=== PATIENT | female | born 1985 | race Caucasian/White ===

== ENCOUNTER 2017-10-22 17:13 | Emergency (ER) | payer BC ==
[~2017-10-22] VITALS: Ht 172.7 cm; Wt 145.0 kg
[2017-10-22 17:16] VITALS: Ht 172.7 cm; Wt 145.0 kg
[2017-10-22] MEDS ORDERED: ASPIRIN 81 MG CHEW PO STA (17:34)
[2017-10-22 18:14] VITALS: O2SAT 97
[2017-10-22 18:17] LABS: BASO % 0.2 %; BASO ABS # 0.02 K/uL (0-0.2); EOS % 2.6 %; EOS ABS # 0.24 K/uL (0-0.5); HEMATOCRIT 42.9 % (37-47); HEMOGLOBIN 14.7 g/dL (12.0-16.0); IG# 0.07 K/uL (0.00-0.02); LYMPH % 18.8 %; LYMPH ABS # 1.73 K/uL (1.2-3.4); MEAN CELL VOLUME 84.1 fL (80-100); MEAN CORPUSCULAR HEMOGLOBIN 28.8 pg (25-34); MEAN CORPUSCULAR HGB CONC 34.3 g/dl (32-36); MEAN PLATELET VOLUME 9.7 fL (7.4-10.4); MONO % 6.3 %; MONO ABS # 0.58 K/uL (0.11-0.59); NEUT % 71.3 %; NEUT ABS # 6.57 K/uL (1.4-6.5); PLATELET COUNT 191 K/uL (130-400); RED CELL DISTRIBUTION WIDTH CV 13.3 % (11.5-14.5); RED CELL DISTRIBUTION WIDTH SD 40.8 fL (36.4-46.3); WHITE BLOOD COUNT 9.21 K/uL (4.8-10.8)
--- NOTE | 2017-10-22 18:21 | DIAGNOSTIC IMAGING REPORT ---
CHEST 2 VIEWS ROUTINE CLINICAL HISTORY: 32 years-old Female presenting with cp. TECHNIQUE: PA and lateral views of the chest were obtained. COMPARISON: None. FINDINGS: Cardiomediastinal silhouette normal. Lungs and pleural spaces clear. Osseous structures normal. Upper abdomen normal. IMPRESSION: 1. No acute cardiopulmonary disease. Electronically signed by: Mo Monique M.D. 10/22/2017 6:20 PM Dictated Date/Time: 10/22/2017 6:19 PM
[2017-10-22 18:42] LABS: BLOOD UREA NITROGEN 10 mg/dl (7-18); CARBON DIOXIDE 25 mmol/L (21-32); CREATININE 0.65 mg/dl (0.60-1.20); GLUCOSE 98 mg/dl (70-99); POTASSIUM 3.6 mmol/L (3.5-5.1); SODIUM 140 mmol/L (136-145)
[2017-10-22] MEDS ORDERED: OPTIRAY 320 IV PRN (18:45)
--- NOTE | 2017-10-22 19:55 | DIAGNOSTIC IMAGING REPORT ---
CT ANGIOGRAPHY OF THE CHEST, PULMONARY EMBOLUS PROTOCOL CLINICAL HISTORY: Chest discomfort. COMPARISON STUDY: Chest radiograph October 22, 2017. TECHNIQUE: Following IV administration of 93 mL of Optiray-320, helical axial images of the chest were obtained utilizing the pulmonary embolus protocol. Maximal intensity projections and sagittal and coronal reformats were viewed on an independent 3D workstation. IV contrast was administered without complication. A dose lowering technique was utilized adhering to the principles of ALARA. CT DOSE: 702.29 mGy.cm FINDINGS: No pulmonary emboli are identified although the segmental and subsegmental pulmonary arteries are suboptimally assessed due to respiratory motion and quantum mottle artifact. Size of the heart is at the upper limits of normal. There is no thoracic aortic dissection. There is no pericardial effusion. No pneumothorax or pleural effusion is noted. There is no consolidation to suggest pneumonia. There are mild groundglass opacities with mosaic attenuation. Bony thorax is unremarkable. Gallbladder is surgically absent. There is probable fatty infiltration of the liver. IMPRESSION: 1. No pulmonary emboli identified although segmental and subsegmental pulmonary arteries suboptimally assessed. 2. Mild groundglass opacities within the lungs with apparent mosaic attenuation. This likely reflects atelectasis however air trapping could appear similar. No consolidation. 3. Probable fatty infiltration of the liver. Electronically signed by: Alonzo Boston M.D. 10/22/2017 7:54 PM Dictated Date/Time: 10/22/2017 7:48 PM
--- NOTE | 2017-10-22 21:00 | EMERGENCY ROOM VISIT NOTE ---
History Report prepared by Billyibshanice: Trena Coleman Under the Supervision of: Dr. Reinier Gaytan M.D. First contact with patient: 17:18 Chief Complaint: CHEST PAIN Stated Complaint: CHEST DISCOMFORT NOT FEELING WELL History of Present Illness The patient is a 32 year old female who presents to the Emergency Room with complaints of waxing and waning chest pain that onset today at 1530. She describes this as a dull pain in the center of the chest. The patient states that she was on her way home from work and started having chest discomfort. She notes that it subsided, but returned after she got home and ate food. She states that she was shaky, but notes that she did not eat lunch. She denies shortness of breath. The patient states that she has been drinking water throughout the day. The patient notes that her blood pressure was slightly up. The patient denies smoking, drug use, recent travel, traumas, and any chance of being . She also denies taking any control or estrogen creams. She states that she has a family of hypertension and heart disease. Source of History: patient Onset: today at 1530 Position: chest Quality: dull Timing: waxes/wanes Associated Symptoms: No SOB Note: The patient complains of being shaky. Review of Systems See HPI for pertinent positives and negatives. A total of ten systems were reviewed and were otherwise negative. Family History FHx: heart disease FHx: hypertension Social History Smoking Status: Never Smoker Drug Use: none Allergies Coded Allergies: No Known Allergies (Unverified , 10/22/17) Physical Exam Vital Signs Date Time Temp Pulse Resp B/P (MAP) Pulse Ox O2 Delivery O2 Flow Rate FiO2 10/22/17 18:14 97 Room Air 10/22/17 18:14 97 Room Air 10/22/17 18:13 89 16 153/97 98 Room Air 10/22/17 17:34 96 10/22/17 17:16 36.4 97 18 167/84 99 Room Air Physical Exam Physical Exam GENERAL: She is oriented to person, place, and time. She appears well- developed and well-nourished. She does not appear distressed. There is a normal insulin pump in place. HENT: Exam performed. Head: Normocephalic and atraumatic. Right Ear: External ear normal. No mastoid tenderness. Left Ear: External ear normal. No mastoid tenderness. Mouth/Throat: The oropharynx is clear and moist. No trismus in the jaw. No dental abscesses or uvula swelling. No oropharyngeal exudate or tonsillar abscesses. EYES: Conjunctivae and EOM are normal. Pupils are equal, round, and reactive to light. Right eye exhibits no discharge. Left eye exhibits no discharge. No scleral icterus. NECK: Normal range of motion. Neck supple. No JVD present. No spinous process tenderness present. No carotid bruit present. No rigidity. No tracheal deviation and normal range of motion present. No Brudzinski's sign and no Kernig 's sign noted. CV: Normal rate, regular rhythm, normal heart sounds and intact distal pulses. There is no peripheral edema. Palpable radial pulses bue. PULM/CHEST: Effort normal and breath sounds normal. No respiratory distress. No stridor. She has no wheezes. She has no rales. Chest Wall: She exhibits no tenderness. ABD: The abdomen is soft. Bowel sounds are normal. She has no distension. No mass is present. There is no tenderness. There is no rebound, no guarding, no Navarro's sign and no tenderness at McBurney's point. Rovsig negative MUSC/SKEL: Normal range of motion. There is no peripheral edema, tenderness or deformity. LYMPH: No cervical adenopathy. NEURO: She is alert and oriented to person, place, and time. She has normal strength. No cranial nerve deficit or sensory deficit. Coordination and gait normal. GCS eye subscore is 4. GCS verbal subscore is 5. GCS motor subscore is 6. Cerebellar tests wnl. SKIN: Skin is warm and dry. She is not diaphoretic. PSYCH: She has a normal mood and affect. Behavior is normal. Judgment and thought content normal. Medical Decision & Procedures ER Provider Diagnostic Interpretation: Radiology results as stated below per my review and radiologist interpretation: CHEST 2 VIEWS ROUTINE CLINICAL HISTORY: 32 years-old Female presenting with cp. TECHNIQUE: PA and lateral views of the chest were obtained. COMPARISON: None. FINDINGS: Cardiomediastinal silhouette normal. Lungs and pleural spaces clear. Osseous structures normal. Upper abdomen normal. IMPRESSION: 1. No acute cardiopulmonary disease. Electronically signed by: Mo Monique M.D. 10/22/2017 6:20 PM Dictated Date/Time: 10/22/2017 6:19 PM Laboratory Results 10/22/17 17:50 Red Blood Count 5.10, Mean Corpuscular Volume 84.1, Mean Corpuscular Hemoglobin 28.8, Mean Corpuscular Hemoglobin Concent 34.3, Mean Platelet Volume 9.7, Neutrophils (%) (Auto) 71.3, Lymphocytes (%) (Auto) 18.8, Monocytes (%) (Auto) 6.3, Eosinophils (%) (Auto) 2.6, Basophils (%) (Auto) 0.2, Neutrophils # (Auto) 6.57, Lymphocytes # (Auto) 1.73, Monocytes # (Auto) 0.58, Eosinophils # (Auto) 0.24, Basophils # (Auto) 0.02 10/22/17 17:50 Test 10/22/17 17:50 10/22/17 20:58 White Blood Count 9.21 K/uL (4.8-10.8) Red Blood Count 5.10 M/uL (4.2-5.4) Hemoglobin 14.7 g/dL (12.0-16.0) Hematocrit 42.9 % (37-47) Mean Corpuscular Volume 84.1 fL (80-100) Mean Corpuscular Hemoglobin 28.8 pg (25-34) Mean Corpuscular Hemoglobin Concent 34.3 g/dl (32-36) Platelet Count 191 K/uL (130-400) Mean Platelet Volume 9.7 fL (7.4-10.4) Neutrophils (%) (Auto) 71.3 % Lymphocytes (%) (Auto) 18.8 % Monocytes (%) (Auto) 6.3 % Eosinophils (%) (Auto) 2.6 % Basophils (%) (Auto) 0.2 % Neutrophils # (Auto) 6.57 K/uL (1.4-6.5) Lymphocytes # (Auto) 1.73 K/uL (1.2-3.4) Monocytes # (Auto) 0.58 K/uL (0.11-0.59) Eosinophils # (Auto) 0.24 K/uL (0-0.5) Basophils # (Auto) 0.02 K/uL (0-0.2) RDW Standard Deviation 40.8 fL (36.4-46.3) RDW Coefficient of Variation 13.3 % (11.5-14.5) Immature Granulocyte % (Auto) 0.8 % Immature Granulocyte # (Auto) 0.07 K/uL (0.00-0.02) D-Dimer 720 ug/L FEU (0-500) Anion Gap 8.0 mmol/L (3-11) Est Creatinine Clear Calc Drug Dose 187.2 ml/min Estimated GFR () 135.2 Estimated GFR (Non- 116.7 BUN/Creatinine Ratio 15.5 (10-20) Calcium Level 9.0 mg/dl (8.5-10.1) Troponin I < 0.015 ng/ml (0-0.045) Laboratory results reviewed by me Medications Administered Medications (Trade) Dose Ordered Sig/Mohan Route Start Time Stop Time Status Last Admin Dose Admin Aspirin (Aspirin Chew) 324 mg NOW STAT PO 10/22/17 17:34 10/22/17 17:35 DC 10/22/17 17:51 324 MG ECG Per My Interpretation Rate (beats per minute): 96 Rhythm: sinus rhythm Findings: other (ND, QR, and QTC within normal limits. No ST segment elevation or depression. P waveinversion in lead 3 only. ) ED Course 1718: The patient was evaluated in room A10. A complete history and physical exam was performed. 1733: Ordered Aspirin 324 mg PO. 2041: Vital signs stable. Physical exam within normal limits. Patient states she has no chest pain at this time. CTA of chest is negative. Will conduct troponin. If it is negative, she will be discharged. Her and her family member at her beside are in agreement of plan. 2138: Vital signs stable. Repeat troponin negative. Patient will be discharged to follow-up with her PCP. DISCHARGE - Plan of care discussed with patient and questions answered. The patient was given both verbal and printed discharge instructions. The patient verbalized understanding and ability to comply. The patient is to seek outpatient follow up as noted in the discharge instructions. The patient verbalized understanding and ability to comply. The patient is discharged in stable condition. The patient was instructed to return for worsening symptoms. Medical Decision 1718: The patient was evaluated in room A10. A complete history and physical exam was performed. 1733: Ordered Aspirin 324 mg PO. 2041: Vital signs stable. Physical exam within normal limits. Patient states she has no chest pain at this time. CTA of chest is negative. Will conduct troponin. If it is negative, she will be discharged. Her and her family member at her beside are in agreement of plan. 213: Vital signs stable. Repeat troponin negative. Patient will be discharged to follow-up with her PCP. DISCHARGE - Plan of care discussed with patient and questions answered. The patient was given both verbal and printed discharge instructions. The patient verbalized understanding and ability to comply. The patient is to seek outpatient follow up as noted in the discharge instructions. The patient verbalized understanding and ability to comply. The patient is discharged in stable condition. The patient was instructed to return for worsening symptoms. Medication Reconcilliation Current Medication List: was personally reviewed by me Impression Primary Impression: Chest pain Scribe Attestation The scribe's documentation has been prepared under my direction and personally reviewed by me in its entirety. I confirm that the note above accurately reflects all work, treatment, procedures, and medical decision making performed by me. The chart was completed utilizing [employer] Speech voice recognition software. Grammatical errors, random word insertions, pronoun errors, and incomplete sentences are an occasional consequence of this system due to software limitations, ambient noise, and hardware issues. Any formal questions or concerns about the content, text, or information contained within the body of this dictation should be directly addressed to the physician for clarification. Departure Information Patient Instructions My [facility] Problem Qualifiers Primary Impression: Chest pain Chest pain type: unspecified Qualified Codes: R07.9 - Chest pain, unspecified
[2017-10-22 21:42] VITALS: BP 152/89; PULSE 91; TEMP 36.4; O2SAT 98
== END 2017-10-22 21:43 | disposition home or self-care (01) ==
LOC: C.EDB 17:16 → C.EDA 21:43
DX: R07.9 Chest pain, unspecified (principal); Z96.41 Presence of insulin pump (external) (internal)